=== PATIENT | male | born 1960 | race Caucasian/White ===

== ENCOUNTER 2023-03-25 09:12 | Day surgery (SDC) | payer OTHER ==
[~2023-03-25] VITALS: Ht 165.1 cm; Wt 94.3 kg
[2023-03-25] MEDS ORDERED: fentaNYL citrate 0.05 MG/ML VIAL ONE (10:13)
[2023-03-25] MEDS ORDERED: MIDAZOLAM 5 MG/5 ML VIAL ONE (10:13)
[2023-03-25] MEDS: MIDAZOLAM 2 MG/2 ML VIAL IVP ONE (11:11)
[2023-03-25] MEDS: fentaNYL citrate 0.05 MG/ML VIAL IVP ONE (11:13)
== END 2023-03-25 12:20 | disposition home or self-care (01) ==
LOC: MDS 09:12 → MMU 09:14 → MDS 12:20
PROVIDERS: ATTEND Internal Medicine Gastroenterology
DX: R13.10 Dysphagia, unspecified (principal); K20.90 Esophagitis, unspecified without bleeding; K31.89 Other diseases of stomach and duodenum; K44.9 Diaphragmatic hernia without obstruction or gangrene; I10 Essential (primary) hypertension; E11.9 Type 2 diabetes mellitus without complications; E78.5 Hyperlipidemia, unspecified; Z79.899 Other long term (current) drug therapy
CPT/HCPCS: 36415; 43239; 82948; 86677; J2250; J3010